=== PATIENT | male | born 1995 | race Asian ===

== ENCOUNTER 2023-04-07 21:38 | Emergency (ER) | payer OTHER ==
[2023-04-07 22:14] VITALS: BP 135/78; O2SAT 98
--- NOTE | 2023-04-07 22:21 | ED Physician Documentation ---
PD HPI URI - Stated complaint Stated Complaint: JUNE/SORE THROAT - Chief complaint Chief Complaint: Heent - History obtained from History obtained from: Patient - Additional information Additional information: HPI from patient. Patient complains of headache, left-sided, onset this afternoon. There was no specific inciting event, no injury. The headache was of gradual onset. He says he had a sore throat during the day since he woke up this morning but that has subsided as the headache came on.Denies stiff neck. Denies fever. Denies cough. He has had headaches before but has not had a headache that he sought medical attention for in the past. He is not taking any medications, including [id number] medication, for this headache. Denies nausea vomiting, denies weakness, denies numbness. Review of Systems Constitutional: reports: Reviewed and negative Eyes: reports: Reviewed and negative Throat: reports: Sore throat Cardiac: reports: Reviewed and negative Respiratory: reports: Reviewed and negative GI: reports: Reviewed and negative Skin: denies: Rash Musculoskeletal: denies: Neck pain Neurologic: reports: Headache. denies: Generalized weakness, Focal weakness, Numbness, Confused, Altered mental status, Head injury PD PAST MEDICAL HISTORY - Past Medical History Past Medical History: No Cardiovascular: None Respiratory: None Neuro: None Endocrine/Autoimmune: None GI: None : None HEENT: None Psych: None Musculoskeletal: None Derm: None - Past Surgical History Past Surgical History: No - Present Medications Home Medications: Ambulatory Orders Medication Instructions Recorded Confirmed No Known Home Medications 04/07/23 04/07/23 - Allergies Allergies/Adverse Reactions: Allergies Allergy/AdvReac Type Severity Reaction Status Date / Time No Known Drug Allergies Allergy Verified 04/07/23 22:12 - Social History Does the pt smoke?: No Smoking Status: Never smoker Does the pt drink ETOH?: Yes Does the pt have substance abuse?: No - Immunizations Immunizations are current?: Yes - POLST Patient has POLST: No PD ED PE NORMAL - Vitals Vital signs reviewed: Yes - General General: Alert and oriented X 3, No acute distress, Well developed/nourished - HEENT HEENT: Atraumatic, PERRL, EOMI, Moist mucous membranes - Neck Neck: Supple, no meningeal sign - Neuro Neuro: Alert and oriented X 3, 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 parapertussis DNA (PCR) NOT DETECTED Nasal Coronavir 229E PCR NOT DETECTED Nasal Coronavir HKU1 PCR NOT DETECTED Nasal Coronavir NL63 PCR NOT DETECTED Nasal Coronavir OC43 PCR NOT DETECTED Nasal Enterovir/Rhinovir PCR NOT DETECTED Nasal Influenza B PCR NOT DETECTED Nasal Influenza A PCR NOT DETECTED Nasal Parainfluen 1 PCR NOT DETECTED Nasal Parainfluen 2 PCR NOT DETECTED Nasal Parainfluen 3 PCR NOT DETECTED Nasal Parainfluen 4 PCR NOT DETECTED Nasal RSV (PCR) NOT DETECTED Nasal B.pertussis DNA PCR NOT DETECTED Nasal C.pneumoniae (PCR) NOT DETECTED Luis Human Metapneumo PCR NOT DETECTED Nasal M.pneumoniae (PCR) NOT DETECTED Nasal SARS-CoV-2 (PCR) NOT DETECTED Group A Strep Rapid Negative PD Medical Decision Making - ED course Complexity details: reviewed results, re-evaluated patient, considered differential, d/w patient ED course: Rapid strep is negative, and respiratory PCR panel also is negative for the viruses tested. He is in NAD and there are no concerning findings on the physical exam. At this time, there is no indication for further testing including imaging (such as CT head). He is given 800 mg ibuprofen p.o. in the emergency department. I encouraged him to follow-up with his PCP for reevaluation, and return precautions were carefully reviewed. Departure - Departure Disposition: 01 Home, Self Care Clinical Impression: Headache Condition: Good Instructions: ED Cephalgia Unspecified Comments: Your rapid strep test was negative, and the nasal swab was negative for a number of different viruses tested on this respiratory viral panel. The cause of your headache is not apparent at this time, but further testing in the emergency department is also not indicated. Certainly, you should return to the emergency department if your symptoms worsen, or if you develop new/concerning signs/symptoms (such as severe headache, intractable vomiting, visual changes, numbness/weakness, confusion, fever). Follow-up with your primary care provider, next available appointment, for reevaluation. Forms: Activity restrictions Discharge Date/Time: 04/07/23 23:35
[2023-04-07 22:22] LABS: RAPID STREP SCREEN Negative (Negative)
[2023-04-07] MEDS ORDERED: IBUPROFEN 800 MG TABLET PO STA (23:00)
[2023-04-07 23:07] LABS: B. PARAPERTUSSIS- RESP PCR PAN NOT DETECTED; B. PERTUSSIS- RESP PCR PANEL NOT DETECTED; C. PNEUMONIAE- RESP PCR PANEL NOT DETECTED; CORONAVIRUS 229E-RESP PCR NOT DETECTED; CORONAVIRUS HKU1-RESP PCR NOT DETECTED; CORONAVIRUS NL63-RESP PCR NOT DETECTED; CORONAVIRUS OC43-RESP PCR NOT DETECTED; HUMAN METAPNEUMOVIRUS NOT DETECTED; INFLUENZA A- RESP PCR PANEL NOT DETECTED; INFLUENZA B - RESP PCR PANEL NOT DETECTED; M. PNEUMONIAE- RESP PCR PANEL NOT DETECTED; PARAINFLUENZA VIRUS 1 NOT DETECTED; PARAINFLUENZA VIRUS 2 NOT DETECTED; PARAINFLUENZA VIRUS 3 NOT DETECTED; PARAINFLUENZA VIRUS 4 NOT DETECTED; RHINOVIRUS/ENTEROVIRUS NOT DETECTED; RSV- RESP PCR PANEL NOT DETECTED; SARS-CoV-2 -RESP PCR PANEL NOT DETECTED
== END 2023-04-07 23:35 | disposition home or self-care (01) ==
LOC: ED 21:38
DX: R51.9 Headache, unspecified (principal); Z11.52 Encounter for screening for COVID-19
CPT/HCPCS: 87070; 87430; 87633; 99283; A9270

== ENCOUNTER 2023-12-02 04:10 | Emergency (ER) | payer OTHER ==
--- NOTE | 2023-12-02 04:54 | ED Physician Documentation ---
PD HPI CHEST PAIN - Stated complaint Stated Complaint: CHEST PX NON CARDIAC - Chief complaint Chief Complaint: Cardiac - History obtained from History obtained from: Patient - Additional information Additional information: The patient comes to the emergency department chief complaint of left-sided chest pain that has been going on for about the last week. He states that most days, it last 10 or 15 minutes and goes away on its own. He states he became concerned because today, he kept getting waves of it and it has lasted about 6- 1/2 hours. He states that it is a cramping or "precramping" type of pain. He states it is very focused and a small area just below his left breast. It does not hurt any worse when he takes a deep breath or moves his chest in any other way. He denies any worsening when he pushes on his chest. The patient denies any associated symptoms. No shortness of breath, nausea, diaphoresis, lightheadedness, pressure, or sense of doom. He denies any swelling or pain in his calves. He is not a smoker and does not have any history of diabetes, hypertension, or pain/dyspnea on exertion. He has not had any recent surgeries or long trips. He states he exercises intermittently and has not been exercising much lately. He denies any family history of [place] in the 20s or 30s. He has no known history of coronary artery disease or blood clot himself. He denies any recent symptoms of illness. No direct trauma or repetitive motion. No other complaints at this time. He states he was just working at his job in the [employer] and was not exerting himself when the symptoms began around 2200 tonight. He states there has not been any other trigger for any of the other episodes at all this week. PD PAST MEDICAL HISTORY - Past Medical History Cardiovascular: None Respiratory: None Neuro: None Endocrine/Autoimmune: None GI: None : None HEENT: None Psych: None Musculoskeletal: None Derm: None - Past Surgical History Past Surgical History: No - Present Medications Home Medications: Ambulatory Orders Medication Instructions Recorded Confirmed No Known Home Medications 04/07/23 12/02/23 - Allergies Allergies/Adverse Reactions: Allergies Allergy/AdvReac Type Severity Reaction Status Date / Time No Known Drug Allergies Allergy Verified 12/02/23 04:21 - Social History Does the pt smoke?: No Smoking Status: Never smoker Does the pt drink ETOH?: Yes Does the pt have substance abuse?: No - Immunizations Immunizations are current?: Yes - POLST Patient has POLST: No PD ED PE NORMAL - Vitals Vital signs reviewed: Yes - General General: Alert and oriented X 3, No acute distress, Well developed/nourished - HEENT HEENT: Atraumatic, EOMI, Moist mucous membranes - Neck Neck: Supple, no meningeal sign - Cardiac Cardiac: RRR, No murmur - Respiratory Respiratory: No respiratory distress, Clear bilaterally - Abdomen Abdomen: Soft, Non tender, Non distended - Back Back: Other (No corresponding left back tenderness.) - Derm Derm: Normal color, Warm and dry, No rash - Extremities Extremities: No deformity, No edema, No calf tenderness / cord - Neuro Neuro: Other (Alert, grossly intact) - Psych Psych: Normal mood, Normal affect Results - Vitals Vitals: Vital Signs - 24 hr 12/02/23 12/02/23 12/02/23 04:18 05:02 05:17 Temperature 36.1 C L 36.3 C L Heart Rate 61 61 63 Respiratory 20 19 16 Rate Blood Pressure 145/87 H 126/61 122/61 O2 Saturation 100 100 99 Oxygen O2 Source Room air - EKG (time done) 0418 EKG releavant findings:: EKG personally interpreted by author of this note. Relevant findings are: Rate: Rate (enter#) (58) Rhythm: NSR [place]: Normal Intervals: Normal [place] QRS: Normal Ischemia: Normal ST segments Other comments: Other comments (occ PVC) Compare to prior EKG: Old EKG unavailable Computer interpretation: Agree with computer - Rads (name of study) CXR Relevant Findings:: Final report received, See rad report (Some streaking in the lower right hilar region; could be atelectasis, consolidation, aspiration, or infiltrate.) PD Medical Decision Making - ED course Complexity details: reviewed results, re-evaluated patient, considered differential, d/w patient ED course: The patient was very low risk for [place] or DVT/PE, and did not have vital signs or historical factors or physical exam findings to indicate any of the other serious or emergent causes of chest pain. I discussed with the patient that he is very low risk for any of the most concerning potential causes of chest pain, though this does not mean that there is not a remote possibility that he could have something more serious happening sometime while he is young. I have offered to do blood work, though I do believe that the likelihood Of this leading to a diagnosis of [place] or PE is very very low. The patient would prefer to just stick with the screening EKG and chest x-ray. His EKG was normal other than a PVC. A chest x-ray was performed and showed some streaking in the right perihilar region which could represent atelectasis, consolidation, aspiration, or infiltrate. Given the patient's very focused left-sided pain and complete lack of other symptoms, I feel that an infectious explanation for this finding is not in keeping with his clinical presentation. I have discussed with him the need [place] nonemergent workup if indicated. We have also discussed that should the patient develop chest pain with any combination of shortness of breath, nausea, diaphor esis, lightheadedness, crushing pressure, radiation, or general sense that something is very wrong, he should return to the emergency department immediately. Departure - Departure Disposition: 01 Home, Self Care Clinical Impression: Chest wall pain Condition: Stable Instructions: ED Chest Pain Costochondritis, ED Strain Chest Wall Comments: As we have discussed, you are exceedingly low risk for the most serious and emergent causes of chest pain and furthermore, your physical exam findings, vital signs, and general history do not indicate any of these things. Your EKG and chest x-ray look great tonight. Most likely, your pain is coming from a musculoskeletal source within the chest. You may take ibuprofen and/or Tylenol as needed for this. You should [place] whether further nonemergent testing, such as stress test or endoscopy, would be indicated. If you develop chest pain that is brought her in scope or radiates outside of your chest, or is associated with any combinations of the following symptoms (shortness of breath, nausea, facial sweating, lightheadedness, or general sense that something is very wrong), you should return to the emergency department immediately. Forms: PCP List, Activity restrictions Discharge Date/Time: 12/02/23 05:17
[2023-12-02] MEDS: ACETAMINOPHEN 325 MG TABLET PO STA (05:05)
[2023-12-02] MEDS: IBUPROFEN 800 MG TABLET PO STA (05:06)
[2023-12-02 05:27] VITALS: BP 122/61; O2SAT 99
--- NOTE | 2023-12-02 08:39 | XRAY Report ---
PROCEDURE: Chest 1V INDICATIONS: chest pain TECHNIQUE: One view of the chest was acquired. COMPARISON: None. FINDINGS: Surgical changes and devices: None. Lungs and pleura: No pleural effusions or pneumothorax. Minimal right basilar atelectasis versus inf iltrate. Mediastinum: Mediastinal contours appear normal. Heart size is normal. Bones and chest wall: No suspicious bony lesions. Overlying soft tissues appear unremarkable. IMPRESSION: Minimal right basilar atelectasis versus infiltrate. Reviewed by: Sony Bennett MD on 12/02/2023 8:38 AM PDT Approved by: Sony Bennett MD on 12/02/2023 8:38 AM PDT Station ID: [id number]
== END 2023-12-02 05:17 | disposition home or self-care (01) ==
LOC: ED 04:10
DX: R07.89 Other chest pain (principal); I49.3 Ventricular premature depolarization
CPT/HCPCS: 36415; 71045; 93005; 99283; A9270